=== PATIENT | male | born 1980 | race Caucasian/White ===

== ENCOUNTER 2023-10-20 19:45 | Inpatient (IN) | payer OTHER, SELFPAY ==
[2023-10-20] VITALS (9 sets, daily range): BP systolic 116–172; BP diastolic 58–100; BMI 39.2; BMI 38.1
--- NOTE | 2023-10-20 12:51 | ED.GENMED ---
History of Present Illness
General
Chief Complaint: Abdominal Pain
Source: patient
Exam Limitations: none
Time Seen by Provider: 10/20/23 12:10
Nursing documentation reviewed up to this point in time: agreed with
Travel History
Have you had any contact with someone who has COVID-19?: No
Do you have any symptoms of coronavirus? Fever > 100 degrees, chills, cough, shortness of breath, sore throat, loss of taste or smell, muscle aches, or headache?: No
History of Present Illness
History of Present Illness:
43-year-old male with previous history of liver laceration many years ago no chronic issues from this presented to the emergency department today with concerns of initially intermittent right upper quadrant abdominal pain now worsening and persist
comfort over the past 24 hours or so. Associated nausea no vomiting no appetite. No changes in bowel he claims that he has felt feverish but denies taking his temperature.
Past History
Past History
ED Past Medical History: Other (Chronic back pain); Negative Asthma, HTN, Hypercholesterolemia or NIDDM
ED Past Surgical History: Other (EXp lap due to lacerated liver as a child)
Social History
Tobacco: Non-smoker
Alcohol: None
Personal: Single
Living: with family
Review of Systems
Review of Systems
Allergies reviewed?: Yes
All Other Systems: ROS reviewed and negative except as documented in HPI and ROS
Phy Exam
Physical Exam
Physical Exam:
GENERAL: Alert , in no apparent distress
EYE: pupils equal and reactive
NECK: Supple, no significant adenopathy.
ENT: o/p clr, mmm.
CARDIAC: Regular rate and rhythm .
LUNGS: Clear breath sounds bilaterally, no acute respiratory distress, no wheezes/rales/rhonchi
ABDOMEN: Significant right upper quadrant tenderness to palpation remainder of the abdomen soft nontender
NEUROLOGICAL: Alert and oriented, no focal neuro deficits
SKIN: Warm and dry, skin intact.
MUSCULOSKELETAL: No edema, well perfused.
PSYCH: Normal and appropriate interaction.
Course
Orders/Labs/Results
Orders:
Orders
10/20/23 12:24
0.9% Sodium Chloride 1000 ml [Nss] 1,000 ml IV BOLUS
Ketorolac [Toradol] 15 mg IV NOW STA
US Abdomen Complete/Upper Urgent
Comment:
Reason For Exam: ruq pain
10/20/23 13:12
Complete Blood Count/With Diff Urgent
Comprehensive Metabolic Panel Urgent
Lipase Urgent
10/20/23 13:19
Urinalysis Reflex To Culture Urgent
Date Specimen was Collected: 10/20/23
Time Specimen was Collected: 13:17
Abnormal Lab Results
10/20/23
13:12
MCH 32.6 H pg
(27.0-31.0)
MPV 10.5 H fL
(7.4-10.4)
Absolute Neuts (auto) 8.6 H 10^3/uL
(1.4-6.5)
Absolute Lymphs (auto) 1.0 L 10^3/uL
(1.2-3.4)
Absolute Monos (auto) 0.7 H 10^3/uL
(0.1-0.6)
Neutrophils % 82.6 H %
(42.2-75.2)
Lymphocytes % 10.0 L %
(20.5-51.1)
BUN 5 L mg/dl
(9-20)
Creatinine 0.5 L mg/dL
(0.7-1.3)
Glucose 104 H mg/dl
(70-99)
Total Bilirubin 3.7 H mg/dl
(0.2-1.3)
AST 313 H U/L
(17-59)
ALT 188 H U/L
(0-50)
Total Protein 8.3 H g/dl
(6.3-8.2)
10/20/23 13:12
10/20/23 13:12
Vital Signs
Initial and Last Documented VS:
Initial Vital Signs
Temp Pulse Resp BP Pulse Ox
98.9 F 79 18 158/100 96
10/20/23 11:02 10/20/23 11:02 10/20/23 11:02 10/20/23 11:02 10/20/23 11:02
Last Documented Vital Signs
Temp Pulse Resp BP Pulse Ox
98.9 F 66 16 172/91 99
10/20/23 11:02 10/20/23 17:30 10/20/23 17:30 10/20/23 17:00 10/20/23 17:30
MDM/Problems Addressed
MDM/Problems Addressed:
43-year-old male presenting to the emergency department with concerns of right upper quadrant abdominal pain persisting for the past day or so has had previous symptoms intermittently in the past. Seem to be worse with fatty foods. Has had nausea
and vomiting claims that he has felt feverish but denies any objective fevers. Patient with significant discomfort to the right upper quadrant initial ultrasound showing gallstones without obvious cholecystitis urinalysis normal patient with
significant elevated bilirubin level 3.7 elevated AST and ALT concerning for potential choledocholithiasis. Plan for admission for MRCP. Patient with some ongoing abdominal pain throughout ER stay. Generally in no distress though.
*Critical Care Note
Total Time (30-74mins, 75-104mins- exclusive of procedures): Not Applicable
ED Attending Note
-
Portions of this chart may have been created with voice recognition software.� Occasional wrong word or��sound alike� substitutions may have occurred due to the inherent limitations of voice recognition software.
Discharge Plan
Departure
Patient Disposition: Admit
Date of Disposition: 10/20/23
Time of Disposition: 18:32
Admit to: Med/Surg
Admit to doctor: Gerardo
Presentation/result/management discussed w/ accepting MD/DO: Hospitalist
Patient with high blood pressure during this ER visit?: No
Condition: Good
Covid-19: Not Applicable
Discharge Problem:
Elevated bilirubin, Transaminitis, Abdominal pain, RUQ
Prescriptions:
No Action
No Current Medications
0
Referrals:
Federico Breaux MD [Family Provider] -
Interventions
Interventions:
*Risk Screen - Suicide Last Done: 10/20/23 11:26
*General Assessment Last Done: 10/20/23 11:02
*Neglect/Abuse Screening Last Done: 10/20/23 11:26
ED- Fall Risk Assessment Last Done: 10/20/23 11:26
*ED COVID-19 Vaccine History Last Done: 10/20/23 11:02
ZY-Aqkjrt-Uehuricmon Assessment Last Done: 10/20/23 11:26
[2023-10-20] MEDS: NSS 1000 IV (13:14)
[2023-10-20] MEDS: TORADOL 15 MG IV (13:15)
[2023-10-20 13:25] LABS: % Basophils 0.2 % (0-2); % Eosinophils 0.1 % (0-6); % Immature Granulocytes 0.4 % (0-0.5); % Monocytes 6.7 % (1.7-9.3); % Neutrophils 82.6 % (42.2-75.2); Absolute Monocytes 0.7 10^3/uL (0.1-0.6); Absolute Neutrophils 8.6 10^3/uL (1.4-6.5); Hematocrit 47.3 % (39.0-52.0); Hemoglobin 16.8 g/dL (13.0-18.0); Mean Corp Hgb Conc. 35.5 g/dL (33.0-37.0); Mean Corpuscular Hgb 32.6 pg (27.0-31.0); Mean Corpuscular Volume 91.8 fL (80.0-94.0); Mean Platelet Volume 10.5 fL (7.4-10.4); Nucleated Red Blood Cells % 0 % (-); Platelet Count 279 10^3/uL (130-400); Red Blood Cell Count 5.15 10^6/uL (4.70-6.10); Red Cell Dist. Width 12.4 % (11.5-14.5); White Blood Cell Count 10.4 10^3/uL (4.8-10.8)
[2023-10-20 13:37] LABS: ALT (SGPT) 188 U/L (0-50); AST (SGOT) 313 U/L (17-59); Albumin 4.9 g/dl (3.5-5.0); Alkaline Phosphatase 106 U/L (38-126); Blood Urea Nitrogen 5 mg/dl (9-20); Calcium 9.5 mg/dl (8.4-10.2); Carbon Dioxide 25 mmol/L (22-30); Chloride 102 mmol/L (98-107); Estimated Creatinine Clearance > 125 ml/min; Glucose 104 mg/dl (70-99); Lipase 125 U/L (23-300); Potassium 4.1 mmol/L (3.5-5.1); Sodium 138 mmol/L (135-145); Total Bilirubin 3.7 mg/dl (0.2-1.3); Total Protein 8.3 g/dl (6.3-8.2); eGFR > 60.00
[2023-10-20 13:43] LABS: Urine Albumin Negative (Neg - Trace); Urine Bilirubin Negative (Negative); Urine Character Clear (Clear); Urine Color Yellow; Urine Glucose Negative (Negative); Urine Ketone Negative (Negative); Urine Leukocyte Negative (Negative); Urine Nitrite Negative (Negative); Urine Occult Blood Negative (Negative); Urine Specific Gravity 1.005 (<1.030); Urine Urobilinogen Negative (Neg - 1+)
--- NOTE | 2023-10-20 19:37 | HPS.HSE ---
Addendum entered and electronically signed by Aman Pantoja DO 10/20/23 19:56:
Patient seen and examined independently. Agree with findings and plan as set forth by Augustina Glass PA-C.
Patient is a 43y M with PMH significant for obesity who presents to ED complaining of RUQ abdominal pain. Patient states that he has had similar symptoms intermittently for the past 2 years or so. He has adjusted his diet with some improvement
in frequency and severity of his symptoms. Patient states that he developed worsened pain about 24 hours ago that has not improved since. He reports sweats and shaking chills. He denies any N/V/D. No current medications.
Ass:
Symptomatic Cholelithiasis
+/- Choledocholithiasis
Obesity
Plan:
Admit for further evaluation and treatment.
NPO, IVFs, pain control and antiemetics if needed.
MRCP in the AM for further evaluation.
GI evaluation.
Will benefit from Surgery evaluation / eventual cholecystectomy.
Monitor for any fevers, chills, other signs / symptoms of cholecystitis or cholangitis.
Original Note:
Family Physician
-
Family Physician: Federico Breaux
Chief Complaint
-
Abdominal Pain
History of Present Illness
Pt is a 43yo M who is presenting to the ED c/o RUQ pain x 1 day. Pt states he developed right upper quadrant discomfort at around 4pm yesterday and states that he ate Ramen noodles for dinner shortly after which seems to have exacerbated the pain.
He states that he frequently experiences RUQ pain which first began 2 years ago. He states initially episodes occurred about 1-2 times a week but with dietary changes they now occur less frequently, about 1-2 times per month. He describes this as a
stabbing pain which radiates to the back and is usually sudden in onset, but states this episode began with a rapid progression of pain. He admits to chills, sweats, and loss of appetite. He denies vomiting, diarrhea, constipation.
Medical History
Past Medical History
Past Medical History: Reports None
Past Surgical History: Reports Other
Additional Past Surgical History:
Exploratory Laparotomy for Liver Laceration Repair
Social History
Tobacco: Non-smoker
Alcohol: None
Family History
Family History: Not pertinent
Allergies / Home Medications
Allergies reflects when Allergies were last updated in [facility].
Home Medications with original date entered in [facility]
Allergy/Medication List:
Allergies
Allergy/AdvReac Type Severity Reaction Status Date / Time
bee venom protein (honey bee) Allergy Intermediate Swelling Verified 10/20/23 11:04
Home Medications
No Meds [No Current Medications] 10/20/23
Review of Systems
-
A 12 point ROS was completed and negative except as noted: Yes
Constitutional: Reports Chills; Denies Fever
Respiratory: Denies Cough or Trouble Breathing
Cardiac: Denies Chest Pain or Palpitations
Abdomen/GI: Reports See HPI
Physical Exam
Vital Signs
Vital Signs
Temp Pulse Resp BP Pulse Ox
98.9 F 81 21 165/91 98
10/20/23 11:02 10/20/23 18:45 10/20/23 18:45 10/20/23 18:00 10/20/23 18:45
Physical Exam
General: Comfortable and Conversant
HEENT: Anicteric and Moist mucous membranes
Respiratory: Clear and Non Labored Respirations
Cardiac: S1/S2 and Regular Rhythm
GI: Soft and Tender (Right Upper Quadrant)
Musculoskeletal: No Clubbing and No Cyanosis
Skin: Warm and Dry
Neuro: Awake, Alert, Oriented and Nonfocal/grossly intact
Psych: Calm
Laboratory Results
-
10/20/23 13:12
10/20/23 13:12
Laboratory Results
Total Bilirubin 3.7 mg/dl (0.2-1.3) H 10/20/23 13:12
AST 313 U/L (17-59) H 10/20/23 13:12
ALT 188 U/L (0-50) H 10/20/23 13:12
Alkaline Phosphatase 106 U/L (38-126) 10/20/23 13:12
Lipase 125 U/L (23-300) 10/20/23 13:12
Data Reviewed
-
Lab Data: Labs Reviewed by me
Impression/Plan
-
Abdominal Pain with Abnormal LFT suspect Biliary Colic and Choledocholithiasis
-Consult GI
-Check Abd MRI/MRCP
-NPO with sips of clears
-Trend LFTs
-Reviewed with patient need for cholecystectomy in the future as outpatient
DVT proph: Lovenox
Code Status: Full Code
--- NOTE | 2023-10-20 20:30 | PTCARENOTE ---
pt arrived from ED to [address], walked on own into room. AAOx3, very pleasant, oriented to room. No needs at this time, VSS. plan of care explained and understood by patient. will cont to monitor.
[2023-10-21 06:49] LABS: Hematocrit 39.6 % (39.0-52.0); Hemoglobin 14.1 g/dL (13.0-18.0); Mean Corp Hgb Conc. 35.6 g/dL (33.0-37.0); Mean Corpuscular Hgb 33.3 pg (27.0-31.0); Mean Corpuscular Volume 93.4 fL (80.0-94.0); Mean Platelet Volume 10.8 fL (7.4-10.4); Platelet Count 200 10^3/uL (130-400); Red Blood Cell Count 4.24 10^6/uL (4.70-6.10); Red Cell Dist. Width 12.4 % (11.5-14.5); White Blood Cell Count 6.4 10^3/uL (4.8-10.8)
--- NOTE | 2023-10-21 06:59 | CON.GI ---
Addendum entered and electronically signed by Edwina Salazar DO 10/21/23 15:04:
The MRI read is back showing a distended gallbladder of 11.8 cm with innumerable small 5 mm gallstones layering in the lumen with a mild amount of pericholecystic inflammation, mild diffuse intrahepatic biliary ductal dilatation and CBD dilation of
6 to 7 mm in diameter with no convincing evidence for choledocholithiasis. Mild circumferential enhancement of the wall of the common bile duct in the pancreatic head. No pancreatic ductal dilatation but diffuse edema throughout the pancreas with
diffuse peripancreatic fluid and acute interstitial edematous pancreatitis. No fluid collection.
Based on imaging and clinically he does meet criteria for pancreatitis.
I restarted fluids which he did not have any and we will give him a 1 L bolus now. I will also consult surgery for eventual cholecystectomy considering this is more likely gallstone pancreatitis
Check LFTs, lipase, and CBC in the morning
Addendum entered and electronically signed by Edwina Salazar DO 10/21/23 14:19:
Would avoid Tylenol in the setting of hepatocellular injury, use tramadol
Addendum entered and electronically signed by Edwina Salazar DO 10/21/23 14:16:
Patient seen and examined independently of SARA. I agree with her note with my additions below
Keven is a 43-year-old male who is obese and has had multiple bouts of pneumonia per the chart who had an intentional 90 pound weight loss a few years ago that has since been stable who comes in with what sounds like biliary colic. Over the past
year he has had intermittent episodes of epigastric and right upper quadrant pain that lasts hours after a meal that can make him nauseated. Generally it goes away with time but this 1 persisted and was different in terms of severity. He said it
was severe before coming in then improved a little then came right back and since has been at a low level but he is tender with palpation. He had an MRI (on my read )showing a dilated gallbladder multiple gallstones, no significant bile duct
dilation. The neck of the gallbladder appears abnormal. Still awaiting the read from radiology.
On labs he had no leukocytosis, total bilirubin 3.8, AST 187, ALT 169 and alkaline phosphatase 89. His lipase was normal. On exam he is soft but tender in the epigastric and right upper quadrant. States even with taking a pill or sipping water it
hurts. Currently no nausea or vomiting. He is afebrile
Ultrasound done yesterday showed multiple small gallstones but no evidence of acute cholecystitis. Normal-appearing pancreas
Overall, concern for biliary colic but his liver enzymes are concerning for more of an obstructive process. I do not see an obstruction on the MRI or ultrasound but am waiting for the official radiology read
Pending results will likely need general surgery consult
Patient needs IV fluids, I have ordered them and okay for sips of clears
Original Note:
Consultation
-
Date/Time Consultation Requested: 10/20/232029
Date/Time Consultation Performed: 10/21/23839
Requesting Provider: Augustina Glass PA-C
Performing Provider: SARA Alvarado, Edwina Salazar DO
Reason for Consultation: increased LFT's
Medical History
Chief Complaint / HPI
Chief Complaint: abdominal pain
History of Present Illness:
Pt is a 43yo with hx prior hx several bouts of PNA, exp lap for liver laceration as child with onset of RUQ pain. In reviewing with patient has had intermittent pain for last 2 years. He recalls 90 lb wt loss prior to onset a few years ago than
weight leveled off. Pain would appear about every other month but resolve. This episode pain continued and presented for evaluation. On admission noted with bilirubin 3.7, AST 313, ALT 188, alk phos 106, and lipase 125. US notable for multiple
small gallstones in gallbladder but no ductal dilation, fatty liver and renal cysts. MRI pending to be completed.
Pt admits to nausea without vomiting. He has had some change in stool color and darker urine with dehydration. He admits to RUQ pain with some improvement since admission but residual soreness. He otherwise denies diarrhea, constipation, blood
or black in stools. No hx EGD or colonoscopy in past. + occasional NSAID use.
Past Medical History
Past Medical History: Other (chronic back pain, prior PNA, obesity)
Past Surgical History: Other (exp lap due to liver laceration as child )
Social History
Tobacco: Non-Smoker
Alcohol: None
Drug: None
Personal: Single
Living: With Family
Employment: Not Employed
Family History
Family History: Other (grandfather with gallbladder problems)
Allergies / Home Medications
Allergy/AdvReac Type Severity Reaction Status Date / Time
bee venom protein (honey bee) Allergy Swelling Verified 10/20/23 20:41
Medication Instructions Recorded
No Meds [No Current Medications] 10/20/23
Review of Systems
-
History Source: Patient
Constitutional: Reports Weight Loss (several years ago now slow increase )
EENT: Reports No Symptoms
Respiratory: Reports No Symptoms
Abdomen/GI: Reports Abdominal Pain, Nausea and Other (change in stool color )
: Reports Dark Urine (with dehydration)
Musculoskeletal: Reports No Symptoms
Skin: Reports No Symptoms
Neurological: Reports No Symptoms
Endocrine: Reports No Symptoms
Hematologic/Lymphatic: Reports No Symptoms
Vital Signs
Temp Pulse Resp BP Pulse Ox
98.8 F 55 18 116/58 97
10/20/23 23:17 10/20/23 23:17 10/20/23 23:17 10/20/23 23:17 10/20/23 23:17
Physical Exam
Exam
General: Well Developed, Well Nourished and No Apparent Distress
HEENT: Normocephalic and Anicteric
Respiratory: Clear
Cardiac: Regular Rhythm
GI: Soft, Non Distended and Tender (RUQ mild)
Musculoskeletal: No Clubbing and No Cyanosis
Skin: Warm and Dry
Neuro: Awake, Alert and AO x 3
Psych: Calm
Results
WBC 10.4 10^3/uL (4.8-10.8) 10/20/23 13:12
Hgb 16.8 g/dL (13.0-18.0) 10/20/23 13:12
Hct 47.3 % (39.0-52.0) 10/20/23 13:12
MCV 91.8 fL (80.0-94.0) 10/20/23 13:12
Plt Count 279 10^3/uL (130-400) 10/20/23 13:12
Absolute Neuts (auto) 8.6 10^3/uL (1.4-6.5) H 10/20/23 13:12
Sodium 138 mmol/L (135-145) 10/20/23 13:12
Potassium 4.1 mmol/L (3.5-5.1) 10/20/23 13:12
Chloride 102 mmol/L (98-107) 10/20/23 13:12
Carbon Dioxide 25 mmol/L (22-30) 10/20/23 13:12
BUN 5 mg/dl (9-20) L 10/20/23 13:12
Creatinine 0.5 mg/dL (0.7-1.3) L 10/20/23 13:12
Calcium 9.5 mg/dl (8.4-10.2) 10/20/23 13:12
Total Bilirubin 3.7 mg/dl (0.2-1.3) H 10/20/23 13:12
AST 313 U/L (17-59) H 10/20/23 13:12
ALT 188 U/L (0-50) H 10/20/23 13:12
Alkaline Phosphatase 106 U/L (38-126) 10/20/23 13:12
Lipase 125 U/L (23-300) 10/20/23 13:12
Diagnostic Image Results:
10/20/23 US notable for multiple small gallstones in gallbladder but no ductal dilation, fatty liver and renal cysts
MRI/MRCP pending
Prior GI Procedures:
EGD: none
Colonoscopy: none
Assessment / Plan
-
Pt is a 43yo with hx prior hx several bouts of PNA, exp lap for liver laceration as child with onset of RUQ pain. In reviewing with patient has had intermittent pain for last 2 years. He recalls 90 lb wt loss prior to onset a few years ago than
weight leveled off. Pain would appear about every other month but resolve. This episode pain continued and presented for evaluation. On admission noted with bilirubin 3.7, AST 313, ALT 188, alk phos 106, and lipase 125. US notable for multiple
small gallstones in gallbladder but no ductal dilation, fatty liver and renal cysts. MRI pending to be completed.
-RUQ pain with intermittent bouts last 2 years
-increased LFT's
-cholelithiasis
-hx liver laceration as child with exp lap
-prior PNA
-obesity
-fatty liver
-occasional NSAID use
PLAN:
etiology of symptoms related to choledocholithiasis, biliary collic vs other
some improvement in pain today
MRI pending to be completed will add MRCP to rule out choledocholithiasis
if MRI + CBD stone will need ERCP
trend LFT's and lipase
NPO pending study
pain contol
will need to consider eventual amanda IP vs OP pending testing
OP eval for fatty liver, will need colonoscopy for screening after February at age 44
all questions answered
-
-
Thank you for consultation and allowing me to participate in the patient's care. Please call the communication equipment repairer GI physician during the after hours with any questions or concerns.
[2023-10-21 07:16] LABS: ALT (SGPT) 169 U/L (0-50); AST (SGOT) 187 U/L (17-59); Albumin 3.6 g/dl (3.5-5.0); Alkaline Phosphatase 89 U/L (38-126); Blood Urea Nitrogen 6 mg/dl (9-20); Calcium 8.5 mg/dl (8.4-10.2); Carbon Dioxide 24 mmol/L (22-30); Chloride 108 mmol/L (98-107); Estimated Creatinine Clearance > 125 ml/min; Glucose 81 mg/dl (70-99); Potassium 3.6 mmol/L (3.5-5.1); Sodium 138 mmol/L (135-145); Total Bilirubin 3.8 mg/dl (0.2-1.3); Total Protein 6.2 g/dl (6.3-8.2); eGFR > 60.00
[2023-10-21 07:20] VITALS: BP 149/81
[2023-10-21] MEDS: PROTONIX IV 40 MG IV (08:30)
[2023-10-21] MEDS: NSS (PRESERVATIVE FREE) 10 ML IV (08:30)
[2023-10-21] MEDS: TYLENOL 650 MG PO (08:41)
--- NOTE | 2023-10-21 11:09 | CM ---
Reviewed the chart notes and spoke with the patient at the bedside. The patient resides with his mother in a two story home with no steps to enter. The patient reports no DME/VN/SNF in the past. The patient confirmed his pharmacy of choice is the
[facility] [address] [place]. The patient anticipates no needs at discharge. CM continues to be available to patient/family and is monitoring medical plan for needs at discharge.
Plan: Discharge to home when medically stable. Patient is requesting paper prescriptions at discharge.
--- NOTE | 2023-10-21 11:27 | W.PN.HOSP.TC ---
Today's Communication/Plan
-
Follow-up MRI MRCP
Check A1c
Assessment / Plan
Assessment / Plan
Abdominal Pain with Abnormal LFT suspect Biliary Colic vs Choledocholithiasis
-GI evaluated and agreed with plan of MRI MRCP, pending today
-LFT marginally elevated
-NPO with sips of clears
-Patient remains afebrile, no indication for antibiotics.
-Further treatment plan based on MRI findings
Pre-diabetic
-Reported previous history in the past, have not seen any PCP in many years
-Recheck A1c
Obesity
-Excessive calorie intake, patient have lost weight in last few years
DVT proph: Lovenox
Code Status: Full Code
Discussed care plan with gastroenterology.
Anticipated Discharge: 24 - 48 hours
Subjective/Interval History
-
Date of Service: October 21, 2023
no abd pain/nausea/vomiting reported during round today
per patient comes in episode with significant associated
Objective Data
-
Labs:
Laboratory Results
10/21/23
06:26
WBC 6.4
Hgb 14.1
Hct 39.6
Plt Count 200 D
Sodium 138
Potassium 3.6
Chloride 108 H
Carbon Dioxide 24
BUN 6 L
Creatinine 0.5 L
Glucose 81
Calcium 8.5
Total Bilirubin 3.8 H
AST 187 H
ALT 169 H
Alkaline Phosphatase 89
Vital Signs:
Vital Signs
Temp Pulse Resp BP Pulse Ox
98.4 F 67 17 149/81 97
10/21/23 07:20 10/21/23 07:20 10/21/23 07:20 10/21/23 07:20 10/21/23 07:20
Review of Systems
-
Respiratory: Reports No Symptoms
Cardiac: Reports No Symptoms
Abdomen/GI: Reports No Symptoms
Physical Exam
-
General: No Apparent Distress and Comfortable
HEENT: Negative Oxygen
Respiratory: Clear to Auscultation
Cardiac: Regular Rhythm and S1/S2; Negative Murmur or Rub
GI: Soft, Nontender and Nondistended
Musculoskeletal: No Edema
Neuro: Awake, Alert, Oriented, No Motor Deficits and Nonfocal/Grossly Intact
Psych: Calm
[2023-10-21 13:55] LABS: Glycohemoglobin (HgbA1c) 5.2 % (4.0-5.6)
[2023-10-21 15:40] VITALS: BP 172/93
[2023-10-21] MEDS: LR 1000 IV ×3 (15:46→23:52)
[2023-10-21 16:17] VITALS: BP 154/89
[2023-10-21] MEDS: LOVENOX 40 MG SC (17:27)
[2023-10-21 23:25] VITALS: BP 135/73
[2023-10-22 05:11] LABS: Hematocrit 38.7 % (39.0-52.0); Hemoglobin 13.8 g/dL (13.0-18.0); Mean Corp Hgb Conc. 35.7 g/dL (33.0-37.0); Mean Corpuscular Hgb 33.2 pg (27.0-31.0); Mean Platelet Volume 10.6 fL (7.4-10.4); Platelet Count 189 10^3/uL (130-400); Red Blood Cell Count 4.16 10^6/uL (4.70-6.10); Red Cell Dist. Width 12.2 % (11.5-14.5); White Blood Cell Count 7.8 10^3/uL (4.8-10.8)
[2023-10-22 05:46] LABS: ALT (SGPT) 149 U/L (0-50); AST (SGOT) 127 U/L (17-59); Albumin 3.5 g/dl (3.5-5.0); Alkaline Phosphatase 85 U/L (38-126); Blood Urea Nitrogen 7 mg/dl (9-20); Calcium 8.6 mg/dl (8.4-10.2); Carbon Dioxide 26 mmol/L (22-30); Chloride 107 mmol/L (98-107); Direct Bilirubin 1.3 mg/dl (0.0-0.4); Estimated Creatinine Clearance > 125 ml/min; Glucose 73 mg/dl (70-99); HDL Cholesterol 35 mg/dl; LDL Cholesterol, Calculated 98 mg/dl; Lipase 1519 U/L (23-300); Potassium 3.7 mmol/L (3.5-5.1); Sodium 137 mmol/L (135-145); Total Bilirubin 2.4 mg/dl (0.2-1.3); Total Cholesterol 156 mg/dl (50-199); Total Protein 6.1 g/dl (6.3-8.2); Triglyceride 118 mg/dl (10-149); Very Low Density Lipoprotein 23 mg/dl (0-30); eGFR > 60.00
[2023-10-22] MEDS: LR 1000 IV ×3 (06:15→18:20)
[2023-10-22 07:30] VITALS: BP 141/83
[2023-10-22] MEDS: PROTONIX IV 40 MG IV (07:48)
[2023-10-22] MEDS: NSS (PRESERVATIVE FREE) 10 ML IV (07:48)
--- NOTE | 2023-10-22 09:30 | CON.GS ---
Consultation
-
Date/Time Consultation Requested: 1500
Requesting Provider: Marie
Reason for Consultation: gallstone pancreatitis, for eventual amanda
Medical History
-
Chief Complaint: abdominal pain
History of Present Illness:
This is a 43 yo male with a history of an ex lap for a traumatic liver laceration as a child and rapid weight loss of 90lbs about 2 years ago after being treated for pna who presents with an approximately 2 year history of intermittent episodes of
epigastric and RUQ pain after large meals. He notes about 14 of these episodes or more. He has noted acholic stools in the past with a previous episode but not with this episode. He tried home remedies of apple cider vinegar and eventually coca cola
in past which he reports helped with prior symptoms as well as eating only light meals. He presented this admission through the ED, as he was having a similar episode as previous only this time his pain was not resolving and he began having pain in
the LUQ as well. He reports nausea but denies vomiting with this episode although he has had this in the past. He denies acholic stools currently. He notes his stools have been different and looser but denies diarrhea. Currently, he is having
residual RUQ pain and tenderness with resolution of LUQ pain/tenderness. He denies active nausea.
Past Medical History
Past Medical History: Other (Obesity, chronic back pain)
Past Surgical History: Other (Ex lap with repair of liver laceration as a child)
Social History
Tobacco: Non-Smoker
Alcohol: None
Employment: Not Employed
Family History
Family History: Reviewed & Not Pertinent
Allergies / Home Medications
Allergy/AdvReac Type Severity Reaction Status Date / Time
bee venom protein (honey bee) Allergy Swelling Verified 10/20/23 20:41
Medication Instructions Recorded Confirmed Type
No Meds [No Current Medications] 10/20/23 10/20/23 History
Review of Systems
-
History Source: Patient
All other systems: Negative unless noted
A 10 point review of systems was completed, and was negative except as per HPI.
Physical Exam
Vital Signs
Temp Pulse Resp BP Pulse Ox
98.4 F 57 16 141/83 98
10/22/23 07:30 10/22/23 07:30 10/22/23 07:30 10/22/23 07:30 10/22/23 07:30
10/21/23 10/22/23 10/23/23
06:59 06:59 06:59
Actual Weight 120.4 kg
Body Mass Index (BMI) 38.1
Lab Results
10/22/23 04:49
10/22/23 04:49
WBC 7.8 10^3/uL (4.8-10.8) 10/22/23 04:49
Hgb 13.8 g/dL (13.0-18.0) 10/22/23 04:49
Hct 38.7 % (39.0-52.0) L 10/22/23 04:49
Plt Count 189 10^3/uL (130-400) 10/22/23 04:49
Abs Immat Gran (auto) 0.0 10^3/uL (0-0.05) 10/20/23 13:12
Neutrophils % 82.6 % (42.2-75.2) H 10/20/23 13:12
Physical Exam
General: Well Developed and No Apparent Distress
HEENT: Normocephalic
Respiratory: Non Labored Respirations
GI: Soft, Non Distended, Tender (RUQ) and Obese
Skin: Warm and Dry
Neuro: Awake, Alert and AO x 3
Psych: Calm
Data Reviewed
-
Ultrasound: Image Personally Visualized and interpreted, Report Reviewed by me, Discussed with Physician and Discussed with Patient
MRI: Image Personally Visualized and interpreted, Report Reviewed by me, Discussed with Physician and Discussed with Patient
Labs: Labs Reviewed by me, Discussed with Physician and Discussed with Patient
Old Records: Reviewed
Assessment / Plan
-
43 yo male with h/o ex lap for liver laceration as a child and episodes of biliary colic x 2 years presenting with persistent pain. LFT's elevated on presentation and now trending down. No leukocytosis. Cholelithiasis on initial US. MRCP without
choledocholithiasis but with extensive cholelithiasis and some mild pericholecystic edema. Pancreatitis on imaging as well. Initial lipase was normal, repeated level today was 1500. Pain nearly resolved to epigastric area and LUQ but tender to the
RUQ with palpation. Suspect gallstone mediated pancreatitis with possible passage of stone. afebrile with stable vital signs.
Recommend eventual cholecystectomy this admission once episode of pancreatitis improved. Patient agreeable with this plan. Will start empiric antibiotics preoperatively given residual right sided pain/pericholecystic inflammation.
Follow labs
Diet as per GI, but will make NPO after MN in case OR is feasible tomorrow
[2023-10-22] MEDS: ZOSYN 50 IV ×3 (10:38→21:27)
--- NOTE | 2023-10-22 10:48 | CM ---
CM consult received regarding patient's concern for hospital bill since he has no insurance. Left message for [facility] for assistance. Provided the patient with the [facility] information regarding insurance. CM continues to be available to
patient/family and is monitoring medical plan for needs at discharge.
Plan: Discharge to home with no needs being identified at this time.
--- NOTE | 2023-10-22 12:40 | W.PN.HOSP.TC ---
Today's Communication/Plan
-
maintain NPO/IVF
eventual cholecystectomy
Assessment / Plan
Assessment / Plan
MRI/MRCP
1. � ACUTE INTERSTITIAL EDEMATOUS PANCREATITIS.
2. � Mild biliary dilatation without evidence for choledocholithiasis.
3. � EXTENSIVE CHOLELITHIASIS and severe gallbladder distention.
4. � Severe diffuse hepatic steatosis.
5. � Mild sheba hepatis and portacaval lymphadenopathy.
6. � Mild splenomegaly.
Liver/GB US
Multiple small gallstones. No secondary findings to suggest acute cholecystitis. Clinical and laboratory correlation recommended. Hepatic fatty infiltration Simple bilateral renal cysts

Gallstone pancreatitis
-MRI abd report as above.
-LFT marginally elevated
-NPO with sips of clears maintain on IV fluid.
-Lipase elevated to ~ 1100 today
-General surgery involved in care, plan for elective cholecystectomy this admit
Pre-diabetic - ruled out
-Reported previous history in the past, have not seen any PCP in many years
-A1c of 5.2
Obesity
-Excessive calorie intake, patient have lost weight in last few years
DVT proph: Lovenox
Code Status: Full Code
Discussed care plan with gastroenterology.
Anticipated Discharge: 24 - 48 hours
Subjective/Interval History
-
Date of Service: October 22, 2023
no issues overnight
Some minimal abdominal discomfort. no nausea/vomting
Objective Data
-
Labs:
Laboratory Results
10/22/23
04:49
WBC 7.8
Hgb 13.8
Hct 38.7 L
Plt Count 189
Sodium 137
Potassium 3.7
Chloride 107
Carbon Dioxide 26
BUN 7 L
Creatinine 0.5 L
Glucose 73
Calcium 8.6
Total Bilirubin 2.4 H
AST 127 H
ALT 149 H
Alkaline Phosphatase 85
Vital Signs:
Vital Signs
Temp Pulse Resp BP Pulse Ox
98.4 F 57 16 141/83 98
10/22/23 07:30 10/22/23 07:30 10/22/23 07:30 10/22/23 07:30 10/22/23 07:30
I&O
10/21/23 10/22/23 10/23/23
06:59 06:59 06:59
Intake Total 3910 / 3910
Output Total 700 / 700
Balance 3210 / 3210
Review of Systems
-
Respiratory: Reports No Symptoms
Cardiac: Reports No Symptoms
Abdomen/GI: Reports Abdominal Pain (minimal discomfort); Denies Nausea or Vomiting
Physical Exam
-
General: No Apparent Distress and Comfortable
HEENT: Negative Oxygen
Neuro: Awake, Alert, Oriented, No Motor Deficits and Nonfocal/Grossly Intact
Psych: Calm
--- NOTE | 2023-10-22 13:25 | VATNOTE ---
Left arm remains swollen from reported previous IV infiltrate. Patient states swelling is improved, and offers no complaints related to infiltrate.
[2023-10-22 15:25] VITALS: BP 181/94
[2023-10-22 15:49] VITALS: BP 160/82
[2023-10-22] MEDS: LOVENOX 40 MG SC (17:22)
[2023-10-22 23:07] VITALS: BP 147/73
[2023-10-23] VITALS (10 sets, daily range): BP systolic 137–159; BP diastolic 73–98
[2023-10-23] MEDS: LR 1000 IV ×3 (01:40→19:39)
[2023-10-23] MEDS: ZOSYN 50 IV ×3 (03:05→21:24)
[2023-10-23 05:13] LABS: Hemoglobin 14.1 g/dL (13.0-18.0); Mean Corp Hgb Conc. 36.2 g/dL (33.0-37.0); Mean Corpuscular Hgb 33.4 pg (27.0-31.0); Mean Corpuscular Volume 92.4 fL (80.0-94.0); Mean Platelet Volume 10.8 fL (7.4-10.4); Platelet Count 209 10^3/uL (130-400); Red Blood Cell Count 4.22 10^6/uL (4.70-6.10); Red Cell Dist. Width 12.3 % (11.5-14.5); White Blood Cell Count 8.6 10^3/uL (4.8-10.8)
[2023-10-23 05:24] LABS: ALT (SGPT) 118 U/L (0-50); AST (SGOT) 79 U/L (17-59); Albumin 3.7 g/dl (3.5-5.0); Alkaline Phosphatase 90 U/L (38-126); Blood Urea Nitrogen 6 mg/dl (9-20); Calcium 8.7 mg/dl (8.4-10.2); Carbon Dioxide 26 mmol/L (22-30); Chloride 106 mmol/L (98-107); Estimated Creatinine Clearance > 125 ml/min; Glucose 72 mg/dl (70-99); Lipase 470 U/L (23-300); Potassium 3.7 mmol/L (3.5-5.1); Sodium 137 mmol/L (135-145); Total Bilirubin 2.2 mg/dl (0.2-1.3); Total Protein 6.2 g/dl (6.3-8.2); eGFR > 60.00
[2023-10-23] MEDS: PROTONIX IV 40 MG IV (07:21)
[2023-10-23] MEDS: NSS (PRESERVATIVE FREE) 10 ML IV (07:21)
--- NOTE | 2023-10-23 08:24 | W.PN.GS2 ---
Today's Communication / Plan
-
OR today
Assessment / Plan
-
This is a 43-year-old male with history of obesity who presents with 2-day history of worsening postprandial, right upper quadrant pain in the setting of the years of biliary colic found to have a distended gallbladder as well as pancreatitis on
MRI. His abdominal pain now has resolved, he would like to proceed with cholecystectomy.
Will plan for a laparoscopic cholecystectomy and cholangiogram.
N.p.o., IV fluids, IV antibiotics.
A potential discharge home later today pending operative findings.
Risks/Benefits/Alternatives, expected postoperative course and possible complications (bleeding, infection, injury to surrounding structures, acute/chronic pain) discussed at length. Patient wishes to proceed with surgery. All questions answered.
Consent obtained.
I spent roughly 25 minutes in total for the care of this patient today including direct patient care and counseling, reviewing labs, imaging, coordination of care, as well as documentation.
Time Spent
Total Time Spent with Patient (in minutes): 50
Subjective Data
-
Date of Service: October 23, 2023
Interval Events:
No acute events overnight. Slept well. Pain resolved. Denies Nausea/Vomiting, +bowel function.
Objective Data
-
Intake and Output
10/22/23 10/23/23 10/24/23
06:59 06:59 06:59
Intake Total 3910 / 3910 3700 / 3700
Output Total 700 / 700 2400 / 2400
Balance 3210 / 3210 1300 / 1300
Intake:
Oral fluids 960 / 960
IV fluids (Total) 2950 / 2950 3550 / 3550
IV piggybacks 150 / 150
Output:
Urine, Voided 700 / 700 2400 / 2400
Other:
Number of approximated MODERATE 1 3
amounts of urine
Number of approximated LARGE 3
amounts of urine
Vital Signs
Temp Pulse Resp BP Pulse Ox
98.4 F 50 16 147/73 97
10/22/23 23:07 10/22/23 23:07 10/22/23 23:07 10/22/23 23:07 10/22/23 23:07
Lab Results
10/23/23 04:15
10/23/23 04:15
Calcium 8.7 mg/dl (8.4-10.2) 10/23/23 04:15
Total Bilirubin 2.2 mg/dl (0.2-1.3) H 10/23/23 04:15
Direct Bilirubin 1.3 mg/dl (0.0-0.4) H 10/22/23 04:49
AST 79 U/L (17-59) H 10/23/23 04:15
ALT 118 U/L (0-50) H 10/23/23 04:15
Alkaline Phosphatase 90 U/L (38-126) 10/23/23 04:15
Total Protein 6.2 g/dl (6.3-8.2) L 10/23/23 04:15
Albumin 3.7 g/dl (3.5-5.0) 10/23/23 04:15
Physical Exam
-
GENERAL/NEURO: Awake, Alert, no distress
CHEST: Unlabored breathing on RA
ABDOMEN: Soft, mild tenderness to palpation in the right upper quadrant. Non-Distended, obese
--- NOTE | 2023-10-23 08:27 | W.SUR.PREOP ---
Pre-Operative Surgical Note
-
I have examined this patient prior to the performance of the scheduled procedure.
The patient's condition is unchanged from the time of the current History and
Physical and the patient is able to undergo the scheduled procedure.
[2023-10-23] MEDS: LR IV (08:43)
--- NOTE | 2023-10-23 11:32 | W.IMMPOSTOP ---
Surgical Immed Post Op Note
-
Primary Surgeon: Armani Montez MD
Assisting Surgeon: None
Pre-op Diagnosis: Acute cholecystitis
Post-op Diagnosis: Acute on chronic cholecystitis
Procedure Performed:
1. Laparoscopic lysis of adhesions
2. Laparoscopic cholecystectomy with cholangiogram
Anesthesia Type: General
Specimen / Cultures: Gallbladder and contents
Estimated Blood Loss: 11 cc
Complications: None
Operative Findings: Dense adhesions to the anterior abdominal. Thick adhesions to the gallbladder wall. Spillage of bile and roughly 100 cholesterol gallstones. All identified stones removed by the end of the case. Intraoperative cholangiogram
performed showed no filling defects after milking back 1 stone from the cystic duct. Duct ligated with two 5 mm titanium clips followed by a 0 PDS Endoloop.
POST OP PLAN:
Imaging: None
Labs: Routine AM
Diet: Advance to Regular as tolerated
Analgesia: Tylenol 650mg q6 Alejo, Valentina 5mg q6 PRN, Dilaudid 0.5mg q2h PRN
Neuro/vascular checks: q4h
AC/AP: Hold Therapeutic AC, Ok for DVT PPx
Activity: Ad Keyanna
Wound/Incisions/Drains: Routine
Abx: Can continue while inpatient
Dispo: RNF, anticipate discharge home later today versus tomorrow.
--- NOTE | 2023-10-23 11:37 | OR.RPT ---
Operative Report
Operative Report
Patient Name: Keven Rosales
: 1980
Date of Operation: 10/23/2023
Preoperative Diagnosis: Acute cholecystitis
Postoperative Diagnosis: Acute on chronic cholecystitis
Procedure(s):
Laparoscopic lysis of adhesions
Laparoscopic Cholecystectomy with Cholangiogram
Surgeon(s):
Dr. Montez
Dry Lumber Grader(s):
ARNOLD Fall
Anesthesia: General
Estimated Blood Loss: 11 cc
Urine Output: None
Drains/Lines/Implants: None
Specimens:
1. Gallbladder and contents
HPI/Surgical Indications:
This is a 43-year-old male with a history of a prior midline laparotomy for traumatic liver laceration when he was a youth, obesity and longstanding biliary colic who presents with 2 days of abdominal pain. Exam, labs and imaging are consistent with
acute cholecystitis as well as acute pancreatitis. After resolution of his pancreatitis, risks/Benefits/Alternatives were discussed at length, and the patient agreed to proceed with surgery.
Operative Findings:
Dense adhesions to the anterior abdominal wall. Thick adhesions to the gallbladder wall as well. Spillage of bile and roughly 100 cholesterol gallstones. All identified stones removed by the end of the case. Top-down cholecystectomy performed.
Intraoperative cholangiogram performed showed no filling defects after milking back 1 stone from the cystic duct. Duct ligated with two 5 mm titanium clips followed by a 0 PDS Endoloop.
Procedure Description:
The patient was brought to the Operating Room and placed in the supine position with one arm tucked. Following uneventful induction of general endotracheal anesthesia, an orogastric tube was placed. The abdomen was prepped and draped in the usual
sterile fashion. A timeout was performed confirming the procedure, consent, and that IV antibiotics were infused and sequential compression devices were confirmed to be on. The abdomen was entered using a left subcostal Veress technique which
required a single pass followed by a right upper quadrant 11 mm Optiview trocar. Pneumoperitoneum to 15 mmHg pressure was obtained without difficulty and we confirmed that no injury had occurred during our entry. There was a dense wall of adhesions
particularly along the midline that we had to lyse to view the left upper quadrant where we were able to visualize our Veress needle and confirmed no injury had occurred during its passage. We spent roughly 45 minutes lysing adhesions before
finally being able to identify the gallbladder which was also matted with adhesions from the omentum and surrounding fatty tissue. The adhesions surrounding the gallbladder were also taken down which took an additional 20 minutes. The patient was
positioned in reverse Trendelenberg and rotated with the right side up slightly. Two, and a 12 mm port in the epigastrium 5mm trocars were then placed along the right subcostal margin. A locking grasping forceps was placed on the fundus of the
gallbladder where it was then retracted cephalad and to the right. Using appropriate grasping instruments, the peritoneum overlying the triangle of Calot was incised and extended superiorly on both the anterior and posterior gallbladder rashid. The
infundibulum appeared to be fairly redundant and was fairly socked in due to chronic inflammation. A 4 x 4 Ray-Gail was placed into the gallbladder fossa. During the dissection in this area a rent was made in the gallbladder with spillage of bile
and several cholesterol gallstones. We did try to close the rent with 5 mm titanium endoclips however this was ultimately unsuccessful. We then converted to a top-down approach and gotten to a nice plane between the posterior gallbladder wall and
the liver. Several branches off of the cystic artery were identified and clipped as we tunneled down to the cystic duct. The cystic duct/gallbladder junction in turn was identified, dissected circumferentially and a clip was placed. A ductotomy was
made and a cholangiocatheter on an Stone clamp was inserted into the cystic duct. A C-arm was draped and brought into the field. An intra-operative cholangiogram was performed. Our first run unfortunately leaked likely due to high back pressure the
cystic duct milked retrograde and 1 small cholesterol gallstone was milked out. A second cholangiogram was performed and was noted to have:
No filling defects in the biliary tree
No significant biliary dilation
Brisk flow of contrast into the duodenum
Normal biliary anatomy, with a long cystic duct
The catheter was then removed and the cystic duct was controlled with two clips, followed by a 0 PDS Endoloop. The gallbladder bed was inspected and excellent hemostasis was obtained. The gallbladder was extracted through the 12 mm trocar site
using an endocatch bag along with many of the gallstones. The remainder of the gallstones were then plucked out using a laparoscopic scooping device until there was no more visible stones identified. The right upper quadrant of the abdomen was
again irrigated and excellent hemostasis was assured. We once again confirmed that there was no gallstones left behind. The 12 mm trocar site was closed using a [id number]-spdye 0 PDS suture using a Blake Chisholm. All remaining trocars were then
removed and the pneumoperitoneum was evacuated. All trocar sites were closed at the skin level using 4-0 Monocryl followed by Dermabond. Overall, the patient tolerated the procedure well and was taken to the Recovery Room postoperatively in
stable condition.
I was the attending physician and performed the procedure with assistance from the STORAGE SOLUTIONS ARCHITECT above. I was present for all portions of the case
Armani Montez MD
[2023-10-23] MEDS: DILAUDID 0.25 MG IV ×2 (11:59→12:17)
--- NOTE | 2023-10-23 12:39 | PTCARENOTE ---
Patient to OR at 0831 for procedure; Patient received back from PACU in bed at 1235; Surgical site assessed with NAIL EXPERT; IVF infusing; Call toribio within reach; Bed in lowest position, wheels locked
[2023-10-23] MEDS: ZOSYN IV (12:46)
--- NOTE | 2023-10-23 14:33 | W.PN.GI.CBS2 ---
Today's Communication / Plan
-
Incentive spirometry, IV fluids, pain control
Assessment / Plan
-
Pt is a 43yo with hx prior hx several bouts of PNA, exp lap for liver laceration as child with onset of RUQ pain. In reviewing with patient has had intermittent pain for last 2 years. He recalls 90 lb wt loss prior to onset a few years ago than
weight leveled off. Pain would appear about every other month but resolve. This episode pain continued and presented for evaluation. On admission noted with bilirubin 3.7, AST 313, ALT 188, alk phos 106, and lipase 125. US notable for multiple
small gallstones in gallbladder but no ductal dilation, fatty liver and renal cysts. MRI pending to be completed.
-RUQ pain with intermittent bouts last 2 years
-increased LFT's
-cholelithiasis
-hx liver laceration as child with exp lap
-prior PNA
-obesity
-fatty liver
-occasional NSAID use
pain contol
OP eval for fatty liver, will need colonoscopy for screening after February at age 44
# biliary colic - gallstone pancreatitis - POD 0 for amanda with dense adhesions and spillage of bile and multiple stones. Intraoperative cholangiogram showed no filling defects. 1 stone was milked back from the cystic duct.
LFTs are improving
IV fluids advance slowly on diet
Will check on him tomorrow. Does not appear ready for discharge. Added incentive spirometry
Total Time Spent with Patient (in minutes): 20
Subjective
Subjective
Date of Service: October 23, 2023
patient in pain post op
Objective
Data Reviewed
Laboratory Data:
Laboratory Results
10/23/23 04:15
10/23/23 04:15
Laboratory Results
Total Bilirubin 2.2 mg/dl (0.2-1.3) H 10/23/23 04:15
AST 79 U/L (17-59) H 10/23/23 04:15
ALT 118 U/L (0-50) H 10/23/23 04:15
Alkaline Phosphatase 90 U/L (38-126) 10/23/23 04:15
Lipase 470 U/L (23-300) H 10/23/23 04:15
Vital Signs and I&O:
Vital Signs
Temp Pulse Resp BP Pulse Ox
97.3 F 68 18 145/83 94
10/23/23 13:40 10/23/23 13:40 10/23/23 13:40 10/23/23 13:40 10/23/23 13:40
I&O
10/22/23 10/23/23 10/24/23
06:59 06:59 06:59
Intake Total 3910 / 3910 3700 / 3700 150 / 150
Output Total 700 / 700 2400 / 2400
Balance 3210 / 3210 1300 / 1300 150 / 150
Physical Exam
Physical Exam
HEENT: Anicteric
GI: Soft and Tender
Neuro: Non Focal
--- NOTE | 2023-10-23 15:39 | W.PN.HOSP.TC ---
Today's Communication/Plan
-
Continue current management. Discharge planning today.
Assessment / Plan
Assessment / Plan
Physical exam:
General: Mild distress.
HEENT: Normocephalic, Atraumatic and Moist Mucous Membranes
Respiratory: Clear to Auscultation; Negative Wheezes, Rales or Rhonchi
Cardiac: Regular Rhythm and S1/S2
GI: Soft, Tender and Nondistended. Postop findings
Musculoskeletal: No Clubbing, No Cyanosis and No Edema
Neuro: Awake, Alert and Oriented
Psych: Calm
A/P:
Gallstone pancreatitis
-MRI abd reported.
-LFT elevated but trending down
-NPO with sips of clears maintain on IV fluid. Plan cholecystectomy today.
-Lipase elevated to 1519-->470 today
-Surgery cleared for discharge today
-Plan to discharge later today
Pre-diabetic - ruled out
-Reported previous history in the past, have not seen any PCP in many years
-A1c of 5.2
Obesity
-Excessive calorie intake, patient have lost weight in last few years
DVT proph: Lovenox
Code Status: Full Code
Anticipated Discharge: Today
Subjective/Interval History
-
Date of Service: October 23, 2023
Patient complains of pain after surgery but tolerable, no nausea or vomiting. Afebrile
Objective Data
-
Labs:
Laboratory Results
10/23/23
04:15
WBC 8.6
Hgb 14.1
Hct 39.0
Plt Count 209
Sodium 137
Potassium 3.7
Chloride 106
Carbon Dioxide 26
BUN 6 L
Creatinine 0.5 L
Glucose 72
Calcium 8.7
Total Bilirubin 2.2 H
AST 79 H
ALT 118 H
Alkaline Phosphatase 90
Vital Signs:
Vital Signs
Temp Pulse Resp BP Pulse Ox
97.3 F 68 18 145/83 94
10/23/23 13:40 10/23/23 13:40 10/23/23 13:40 10/23/23 13:40 10/23/23 13:40
I&O
10/22/23 10/23/23 10/24/23
06:59 06:59 06:59
Intake Total 3910 / 3910 3700 / 3700 150 / 150
Output Total 700 / 700 2400 / 2400
Balance 3210 / 3210 1300 / 1300 150 / 150
[2023-10-23] MEDS: TORADOL 15 MG IV (16:03)
--- NOTE | 2023-10-23 16:20 | CM ---
Per chart, plan for dc today after OR
No dc needs identified
Discharge Disposition- home, no needs
[2023-10-23] MEDS: LOVENOX 40 MG SC (17:16)
[2023-10-24] MEDS: TORADOL 15 MG IV ×2 (00:12→10:31)
[2023-10-24] MEDS: ZOSYN 50 IV ×4 (03:08→21:50)
[2023-10-24 03:10] VITALS: BP 132/67
[2023-10-24] MEDS: ULTRAM 25 MG PO (06:30)
[2023-10-24 06:40] LABS: Hematocrit 39.8 % (39.0-52.0); Hemoglobin 14.3 g/dL (13.0-18.0); Mean Corp Hgb Conc. 35.9 g/dL (33.0-37.0); Mean Corpuscular Volume 91.9 fL (80.0-94.0); Mean Platelet Volume 11.1 fL (7.4-10.4); Platelet Count 260 10^3/uL (130-400); Red Blood Cell Count 4.33 10^6/uL (4.70-6.10); Red Cell Dist. Width 12.3 % (11.5-14.5); White Blood Cell Count 13.7 10^3/uL (4.8-10.8)
[2023-10-24 07:12] LABS: ALT (SGPT) 217 U/L (0-50); AST (SGOT) 345 U/L (17-59); Alkaline Phosphatase 128 U/L (38-126); Blood Urea Nitrogen 5 mg/dl (9-20); Calcium 8.9 mg/dl (8.4-10.2); Carbon Dioxide 23 mmol/L (22-30); Chloride 106 mmol/L (98-107); Estimated Creatinine Clearance > 125 ml/min; Glucose 103 mg/dl (70-99); Potassium 3.3 mmol/L (3.5-5.1); Sodium 138 mmol/L (135-145); Total Bilirubin 3.1 mg/dl (0.2-1.3); Total Protein 6.9 g/dl (6.3-8.2); eGFR > 60.00
[2023-10-24] MEDS: NSS (PRESERVATIVE FREE) 10 ML IV (07:34)
[2023-10-24] MEDS: PROTONIX IV 40 MG IV (07:34)
[2023-10-24 07:52] VITALS: BP 141/79
--- NOTE | 2023-10-24 08:12 | W.PN.HOSP.TC ---
Today's Communication/Plan
-
Continue IVF, pain control, antibiotics. Downgrade diet
Assessment / Plan
Assessment / Plan
Physical exam:
General: Acutely ill
HEENT: Normocephalic, Atraumatic and Moist Mucous Membranes
Respiratory: Clear to Auscultation; Negative Wheezes, Rales or Rhonchi
Cardiac: Regular Rhythm and S1/S2
GI: Bowel sounds normal, Soft, Tender and Nondistended. Postop findings
Musculoskeletal: No Clubbing, No Cyanosis and No Edema
Neuro: Awake, Alert and Oriented, no gross neuro-deficits
Psych: Calm
A/P:
Gallstone pancreatitis s/p Heather and now recurrent abdominal pain with elevated pancreatic enzymes with recurrent pancreatitis:
-Downgrade diet to clear liquid today
-Keep IV fluids LR at 150 cc/h
-Continue IV antibiotics, Zosyn
-Continue pain control
-Lipase 1519-->470-->4000
-Discussed with surgery
-No discharge today on 10/24
Prior to today:
-MRI abd reported.
-LFT elevated but trending down
-Status post cholecystectomy on 10/23.
Pre-diabetic - ruled out
-Reported previous history in the past, have not seen any PCP in many years
-A1c of 5.2
Obesity
-Excessive calorie intake, patient have lost weight in last few years
DVT proph: Lovenox
Code Status: Full Code
Total time spent on today's encounter was 52 minutes which included time spent in counseling the patient/family regarding diagnosis and treatment plan as listed above, goals of care, and symptom management. Case was discussed with nursing staff,
specialists, and care coordinators/case management. All labs and imaging personally reviewed by me. Remainder the time spent in detailed review of previous records, lab data, imaging, and other medical provider documentation.
Anticipated Discharge: 24 - 48 hours
Subjective/Interval History
-
Date of Service: October 24, 2023
Patient still having abdominal pain today especially after eating. He feels his abdominal pain is similar to before surgery. No nausea or vomiting. Afebrile
Objective Data
-
Labs:
Laboratory Results
10/24/23
05:44
WBC 13.7 H
Hgb 14.3
Hct 39.8
Plt Count 260 D
Sodium 138
Potassium 3.3 L
Chloride 106
Carbon Dioxide 23
BUN 5 L
Creatinine 0.6 L
Glucose 103 H
Calcium 8.9
Total Bilirubin 3.1 H
AST 345 H
ALT 217 H
Alkaline Phosphatase 128 H
Vital Signs:
Vital Signs
Temp Pulse Resp BP Pulse Ox
98 F 60 20 141/79 100
10/24/23 07:52 10/24/23 07:52 10/24/23 07:52 10/24/23 07:52 10/24/23 07:52
I&O
10/23/23 10/24/23 10/25/23
06:59 06:59 06:59
Intake Total 3700 / 3700 4200 / 4200
Output Total 2400 / 2400 3655 / 3655
Balance 1300 / 1300 545 / 545
Review of Systems
-
All other systems: Reviewed and negative
--- NOTE | 2023-10-24 09:43 | W.PN.GI.CBS2 ---
Today's Communication / Plan
-
If Pain improved today and tolerates diet then okay to DC home but would recommend repeating LFTs 1 week post discharge since LFTs are higher today, but if pain worsens then may need repeat imaging
Assessment / Plan
-
Pt is a 43yo with hx prior hx several bouts of PNA, exp lap for liver laceration as child with onset of RUQ pain. In reviewing with patient has had intermittent pain for last 2 years. He recalls 90 lb wt loss prior to onset a few years ago than
weight leveled off. Pain would appear about every other month but resolve. This episode pain continued and presented for evaluation. On admission noted with bilirubin 3.7, AST 313, ALT 188, alk phos 106, and lipase 125. US notable for multiple
small gallstones in gallbladder but no ductal dilation, fatty liver and renal cysts. MRI pending to be completed.
-RUQ pain with intermittent bouts last 2 years
-increased LFT's
-cholelithiasis
-hx liver laceration as child with exp lap
-prior PNA
-obesity
-fatty liver
-occasional NSAID use
pain contol
OP eval for fatty liver, will need colonoscopy for screening after February at age 44
# biliary colic - gallstone pancreatitis - POD 1 for amanda with dense adhesions and spillage of bile and multiple stones. Intraoperative cholangiogram showed no filling defects. 1 stone was milked back from the cystic duct.
LFTs higher today ? maybe post op, IOC was neg for CBD stones, monitor LFTS, lipase pending
continue antibiotics (duration per surgery)
If tolerates diet today then OK to DC home but repeat LFTS in 1 week after DC
Also told him to use MiraLAX for constipation at home
Subjective
Subjective
Date of Service: October 24, 2023
Pain is improved today morning, he did require pain medicine last night. No nausea or vomiting, afebrile but has mild leukocytosis today and also LFTs more elevated today.
Objective
Data Reviewed
Laboratory Data:
Laboratory Results
10/24/23 05:44
10/24/23 05:44
Laboratory Results
Total Bilirubin 3.1 mg/dl (0.2-1.3) H 10/24/23 05:44
AST 345 U/L (17-59) H 10/24/23 05:44
ALT 217 U/L (0-50) H 10/24/23 05:44
Alkaline Phosphatase 128 U/L (38-126) H 10/24/23 05:44
Lipase 470 U/L (23-300) H 10/23/23 04:15
Vital Signs and I&O:
Vital Signs
Temp Pulse Resp BP Pulse Ox
98 F 60 20 141/79 100
10/24/23 07:52 10/24/23 07:52 10/24/23 07:52 10/24/23 07:52 10/24/23 07:52
I&O
10/23/23 10/24/23 10/25/23
06:59 06:59 06:59
Intake Total 3700 / 3700 4200 / 4200
Output Total 2400 / 2400 3655 / 3655
Balance 1300 / 1300 545 / 545
Physical Exam
Physical Exam
Cardiology: Normal Sinus Rhythm
Pulmonary: Clear
GI: Soft, Non Distended, Tender (mild epigastric and RUQ tenderness, ) and Normal Bowel Sounds
[2023-10-24] MEDS: KCL 40 MEQ PO (10:47)
[2023-10-24 10:54] LABS: Lipase > 4000 U/L (23-300)
--- NOTE | 2023-10-24 11:01 | CM ---
Spoke with patient bedside.
Plan back to residential sober house when medically cleared.
Patient has transportation available.
Patient denies home care needs.
Plan: home no needs.
--- NOTE | 2023-10-24 11:03 | CM ---
Spoke with patient bedside.
S/p Jose GUTIÉRREZ.
Patient denies home care needs.
Plan: home no needs anticipated.
[2023-10-24 11:19] VITALS: BP 154/79
[2023-10-24] MEDS: LR 1000 IV ×2 (11:24→17:49)
[2023-10-24] MEDS: LR IV (11:24)
--- NOTE | 2023-10-24 12:06 | W.PN.GS2 ---
Today's Communication / Plan
-
Ongoing pancreatitis.
Pain control, IV fluids, clears.
Continue IV antibiotics while inpatient
Assessment / Plan
-
This is a 43-year-old male with history of obesity who presents with 2-day history of worsening postprandial, right upper quadrant pain in the setting of the years of biliary colic found to have a distended gallbladder as well as pancreatitis on
MRI. He is postoperative day 1 from a laparoscopic cholecystectomy and cholangiogram with fairly extensive lysis of adhesions. Now with epigastric pain and elevated lipase concerning for ongoing pancreatitis
Okay for clears, can advance diet as tolerated
Will continue antibiotics while inpatient.
Pain control
Continue to trend LFTs and lipase. His bilirubin is elevated though with a negative IOC I have a low suspicion for common duct stone.
General surgery will continue to follow
Time Spent
Total Time Spent with Patient (in minutes): 20
Subjective Data
-
Date of Service: October 24, 2023
Interval Events:
No acute events overnight but his pain is worse more similar to his pain on presentation. Denies Nausea/Vomiting, but pain worse with eating.
Objective Data
-
Intake and Output
10/23/23 10/24/23 10/25/23
06:59 06:59 06:59
Intake Total 3700 / 3700 4200 / 4200
Output Total 2400 / 2400 3654 / 3654
Balance 1300 / 1300 545 / 545
Intake:
Oral fluids 1200 / 1200
IV fluids (Total) 3550 / 3550 2850 / 2850
LR 50 / 50
Normosol 100 / 100
IV piggybacks 150 / 150 150 / 150
Output:
Urine, Voided 2400 / 2400 3654 / 3654
Other:
Number of approximated MODERATE 3
amounts of urine
Vital Signs
Temp Pulse Resp BP Pulse Ox
98.4 F 53 19 154/79 99
10/24/23 11:19 10/24/23 11:19 10/24/23 11:19 10/24/23 11:19 10/24/23 11:19
Lab Results
10/24/23 05:44
10/24/23 05:44
Calcium 8.9 mg/dl (8.4-10.2) 10/24/23 05:44
Total Bilirubin 3.1 mg/dl (0.2-1.3) H 10/24/23 05:44
Direct Bilirubin 1.3 mg/dl (0.0-0.4) H 10/22/23 04:49
AST 345 U/L (17-59) H 10/24/23 05:44
ALT 217 U/L (0-50) H 10/24/23 05:44
Alkaline Phosphatase 128 U/L (38-126) H 10/24/23 05:44
Total Protein 6.9 g/dl (6.3-8.2) 10/24/23 05:44
Albumin 4.0 g/dl (3.5-5.0) 10/24/23 05:44
Physical Exam
-
GENERAL/NEURO: Awake, Alert, no distress
CHEST: Unlabored breathing on RA
ABDOMEN: Soft, tender to palpation in the epigastrium, nondistended.
[2023-10-24 15:38] VITALS: BP 151/81
[2023-10-24] MEDS: LOVENOX 40 MG SC (17:49)
[2023-10-24 22:56] VITALS: BP 136/84
[2023-10-25] MEDS: LR 1000 IV ×3 (00:46→13:45)
[2023-10-25] MEDS: ZOSYN 50 IV ×2 (03:30→10:00)
[2023-10-25 05:04] LABS: % Basophils 0.4 % (0-2); % Eosinophils 1.4 % (0-6); % Immature Granulocytes 0.3 % (0-0.5); % Neutrophils 59.9 % (42.2-75.2); Absolute Eosinophils 0.1 10^3/uL (0-0.7); Absolute Lymphocytes 2.7 10^3/uL (1.2-3.4); Absolute Monocytes 0.8 10^3/uL (0.1-0.6); Absolute Neutrophils 5.6 10^3/uL (1.4-6.5); Hematocrit 35.2 % (39.0-52.0); Hemoglobin 12.4 g/dL (13.0-18.0); Mean Corp Hgb Conc. 35.2 g/dL (33.0-37.0); Mean Corpuscular Hgb 32.4 pg (27.0-31.0); Mean Corpuscular Volume 91.9 fL (80.0-94.0); Mean Platelet Volume 10.9 fL (7.4-10.4); Nucleated Red Blood Cells % 0 % (-); Platelet Count 198 10^3/uL (130-400); Red Blood Cell Count 3.83 10^6/uL (4.70-6.10); Red Cell Dist. Width 12.5 % (11.5-14.5); White Blood Cell Count 9.4 10^3/uL (4.8-10.8)
[2023-10-25 05:08] LABS: INR 1.06; PT 13.8 Sec (11.4-14.6)
[2023-10-25 05:45] LABS: ALT (SGPT) 174 U/L (0-50); AST (SGOT) 118 U/L (17-59); Albumin 3.4 g/dl (3.5-5.0); Alkaline Phosphatase 94 U/L (38-126); Blood Urea Nitrogen 6 mg/dl (9-20); Calcium 8.5 mg/dl (8.4-10.2); Carbon Dioxide 28 mmol/L (22-30); Chloride 107 mmol/L (98-107); Estimated Creatinine Clearance > 125 ml/min; Glucose 78 mg/dl (70-99); Lipase 454 U/L (23-300); Potassium 3.5 mmol/L (3.5-5.1); Sodium 137 mmol/L (135-145); Total Bilirubin 1.4 mg/dl (0.2-1.3); Total Protein 5.7 g/dl (6.3-8.2); eGFR > 60.00
[2023-10-25] MEDS: PROTONIX IV 40 MG IV (07:32)
[2023-10-25] MEDS: NSS (PRESERVATIVE FREE) 10 ML IV (07:32)
--- NOTE | 2023-10-25 08:01 | W.PN.HOSP.TC ---
Today's Communication/Plan
-
Continue current management. Discharge planning in progress
Assessment / Plan
Assessment / Plan
Physical exam:
General: No distress
HEENT: Normocephalic, Atraumatic and Moist Mucous Membranes
Respiratory: Clear to Auscultation; Negative Wheezes, Rales or Rhonchi
Cardiac: Regular Rhythm and S1/S2
GI: Bowel sounds normal, Soft, Non tender and Nondistended. Postop findings
Musculoskeletal: No Clubbing, No Cyanosis and No Edema
Neuro: Awake, Alert and Oriented, no gross neuro-deficits
Psych: Calm
A/P:
Gallstone pancreatitis s/p Heather and now recurrent abdominal pain with elevated pancreatic enzymes with recurrent pancreatitis:
-Diet back to low-fat diet
-Stop IV fluids
-Can stop antibiotics upon discharge
-GI follow-up appreciated and cleared for discharge
-Lipase 1519-->470-->4000-->454
Prior to today:
-MRI abd reported.
-LFT elevated but trending down
-Status post cholecystectomy on 10/23.
Pre-diabetic - ruled out
-Reported previous history in the past, have not seen any PCP in many years
-A1c of 5.2
Obesity
-Excessive calorie intake, patient have lost weight in last few years
DVT proph: Lovenox
Code Status: Full Code
Anticipated Discharge: Today
Subjective/Interval History
-
Date of Service: October 25, 2023
Patient abdominal pain resolved this morning. Able to tolerate his diet.
Objective Data
-
Labs:
Laboratory Results
10/25/23
04:24
WBC 9.4
Hgb 12.4 L
Hct 35.2 L
Plt Count 198 D
PT 13.8
INR 1.06
Sodium 137
Potassium 3.5
Chloride 107
Carbon Dioxide 28
BUN 6 L
Creatinine 0.6 L
Glucose 78
Calcium 8.5
Total Bilirubin 1.4 H D
AST 118 H
ALT 174 H
Alkaline Phosphatase 94
Vital Signs:
Vital Signs
Temp Pulse Resp BP Pulse Ox
98.5 F 49 16 136/84 100
10/24/23 22:56 10/24/23 22:56 10/24/23 22:56 10/24/23 22:56 10/24/23 22:56
I&O
10/24/23 10/25/23 10/26/23
06:59 06:59 06:59
Intake Total 4200 / 4200 2540 / 2540 2230 / 2230
Output Total 3655 / 3655 600 / 600 1650 / 1650
Balance 545 / 545 1940 / 1940 580 / 580
[2023-10-25 08:10] VITALS: BP 142/78
--- NOTE | 2023-10-25 08:51 | W.PN.GS2 ---
Today's Communication / Plan
-
LFD
DC when tolerating
Assessment / Plan
-
This is a 43-year-old male with history of obesity who presents with 2-day history of worsening postprandial, right upper quadrant pain in the setting of the years of biliary colic found to have a distended gallbladder as well as pancreatitis on
MRI. He is postoperative day 2 from a laparoscopic cholecystectomy and cholangiogram with fairly extensive lysis of adhesions. Now with epigastric pain and elevated lipase concerning for ongoing pancreatitis
Adv to LFD
Will continue antibiotics while inpatient.
Pain control
LFTs improved
If navid diet, OK for DC from surg standpoint
Subjective Data
-
Date of Service: October 25, 2023
AFVSS, ambulating, pain improved, navid CLD without postprandial pain
Objective Data
-
Intake and Output
10/24/23 10/25/23 10/26/23
06:59 06:59 06:59
Intake Total 4200 / 4200 2540 / 2540 2230 / 2230
Output Total 3655 / 3655 600 / 600 1650 / 1650
Balance 545 / 545 1940 / 1940 580 / 580
Intake:
Oral fluids 1200 / 1200 1440 / 1440 480 / 480
IV fluids (Total) 2850 / 2850 1000 / 1000 1650 / 1650
LR 50 / 50
Normosol 100 / 100
IV piggybacks 150 / 150 100 / 100 100 / 100
Output:
Urine, Voided 3655 / 3655 600 / 600 1650 / 1650
Other:
Number of approximated LARGE 3
amounts of urine
Vital Signs
Temp Pulse Resp BP Pulse Ox
98.4 F 50 18 142/78 98
10/25/23 08:10 10/25/23 08:10 10/25/23 08:10 10/25/23 08:10 10/25/23 08:10
Lab Results
10/25/23 04:24
10/25/23 04:24
Calcium 8.5 mg/dl (8.4-10.2) 10/25/23 04:24
Total Bilirubin 1.4 mg/dl (0.2-1.3) H D 10/25/23 04:24
Direct Bilirubin 1.3 mg/dl (0.0-0.4) H 10/22/23 04:49
AST 118 U/L (17-59) H 10/25/23 04:24
ALT 174 U/L (0-50) H 10/25/23 04:24
Alkaline Phosphatase 94 U/L (38-126) 10/25/23 04:24
Total Protein 5.7 g/dl (6.3-8.2) L 10/25/23 04:24
Albumin 3.4 g/dl (3.5-5.0) L 10/25/23 04:24
Physical Exam
-
Gen: NAD
Abd: soft, obese, approp ttp, incisions cdi
--- NOTE | 2023-10-25 09:16 | W.PN.GI.CBS2 ---
Today's Communication / Plan
-
adv diet
possible DC today if tolerates diet and Ok with surgery
Assessment / Plan
-
Pt is a 43yo with hx prior hx several bouts of PNA, exp lap for liver laceration as child with onset of RUQ pain. In reviewing with patient has had intermittent pain for last 2 years. He recalls 90 lb wt loss prior to onset a few years ago than
weight leveled off. Pain would appear about every other month but resolve. This episode pain continued and presented for evaluation. On admission noted with bilirubin 3.7, AST 313, ALT 188, alk phos 106, and lipase 125. US notable for multiple
small gallstones in gallbladder but no ductal dilation, fatty liver and renal cysts. MRI pending to be completed.
-RUQ pain with intermittent bouts last 2 years
-increased LFT's
-cholelithiasis
-hx liver laceration as child with exp lap
-prior PNA
-obesity
-fatty liver
-occasional NSAID use
pain contol
OP eval for fatty liver, will need colonoscopy for screening after February at age 44
# biliary colic - gallstone pancreatitis - POD 2 for amanda with dense adhesions and spillage of bile and multiple stones. Intraoperative cholangiogram showed no filling defects. 1 stone was milked back from the cystic duct.
LFTs higher 10/24 ? maybe post op, IOC was neg for CBD stones
Lipase was also elevated yesterday much improved today
continue antibiotics (duration per surgery)
Will adv diet to low fat diet, If tolerates diet today then OK to DC home with repeat LFTS in 1 week after DC
Also told him to use MiraLAX for constipation at home
Subjective
Subjective
Date of Service: October 25, 2023
Abdominal pain is improved and his lipase and LFTs have markedly improved today also. No nausea or vomiting he has been tolerating clear liquids
Objective
Data Reviewed
Laboratory Data:
Laboratory Results
10/25/23 04:24
10/25/23 04:24
Laboratory Results
PT 13.8 Sec (11.4-14.6) 10/25/23 04:24
INR 1.06 10/25/23 04:24
Total Bilirubin 1.4 mg/dl (0.2-1.3) H D 10/25/23 04:24
AST 118 U/L (17-59) H 10/25/23 04:24
ALT 174 U/L (0-50) H 10/25/23 04:24
Alkaline Phosphatase 94 U/L (38-126) 10/25/23 04:24
Lipase 454 U/L (23-300) H 10/25/23 04:24
Vital Signs and I&O:
Vital Signs
Temp Pulse Resp BP Pulse Ox
98.4 F 50 18 142/78 98
10/25/23 08:10 10/25/23 08:10 10/25/23 08:10 10/25/23 08:10 10/25/23 08:10
I&O
10/24/23 10/25/23 10/26/23
06:59 06:59 06:59
Intake Total 4200 / 4200 2540 / 2540 2230 / 2230
Output Total 3655 / 3655 600 / 600 1650 / 1650
Balance 545 / 545 1940 / 1940 580 / 580
Physical Exam
Physical Exam
Cardiology: Normal Sinus Rhythm
Pulmonary: Clear
GI: Soft, Non Distended, Tender (Minimal epigastric incision tenderness) and Normal Bowel Sounds
--- NOTE | 2023-10-25 11:37 | W.DCSUMMARY ---
Discharge Summary
Discharge Data
Date of Admission: 10/20/23
Date of Discharge: 10/25/23
-
Pending Results: No
Hospital Course
Patient 43 years old male who came into the hospital with abdominal pain and he was found to have abdominal gallstones and MRI shows evidence of pancreatitis without choledocholithiasis with elevated LFTs and pancreatic enzymes he was kept n.p.o.
and IV fluids and pain control. GI and surgery was consulted. He was also given antibiotics. Patient improved with conservative treatment and he was taken to the OR on 10/23 and he had a cholecystectomy performed. Cholangiogram unremarkable.
Postop he developed some abdominal pain and increased lipase so diet had to be downgraded. Subsequently patient improved and he has been able to tolerate his diet and lipase and LFTs are trending down appropriately. Otherwise, patient is
hemodynamically stable and he feels he wants to go home. He will be discharged in stable condition today.
Discharge duration: 35 minutes
Discharge Plan
-
Patient Disposition: Home (Routine Discharge)
Discharge Diagnosis/Procedures: Acute cholecystitis. Laparoscopic cholecystectomy and cholangiogram.
Condition: Good
Diet: Regular
Activity: No strenuous activity
Bathing Restrictions: OK to Shower
Activity Restrictions/Additional Instructions:
Instructions following Laparoscopic cholecystectomy
Please call [phone] if you have any questions or concerns after your surgery.
Wound Care:
Your incisions are covered with skin glue which will come off on it�s own in 5-10 days.
It is ok to shower the day after your surgery. Do not scrub the incisions, let soap and water wash over them and pat dry.
� Bruising around your incisions is normal.
� Using ice packs will help minimize this swelling.
� No swimming or soaking incisions for 1 week.
� Your stitches will dissolve and do not need to be removed.
Urinary retention:
If you are unable to urinate 6-8 hours after your surgery, please call [phone] to discuss further management.
Activity:
No heavy lifting more than 15 pounds for the next 3 weeks, then you may gradually lift heavier objects as tolerated by discomfort. Otherwise activity as tolerated by your comfort level.
Pain Management:
Use Tylenol, ibuprofen and ice packs to treat your pain.
� You may take 650 milligrams of Tylenol (Max 3 grams per day) every 6 hours, and 600 mg of ibuprofen also every 6 hours. (you can alternate them every 3 hours)
� You may use an ice pack to your incision as needed.
� If you still have pain not controlled by these measures, take your prescription pain medication as prescribed.
Medications:
You may resume your home medications.
Bowel Medications:
Prescription pain medication can make you constipated. If you take this medication, also take colace 100 mg twice daily (this is over the counter). If this is not sufficient, you may take Miralax (polyethylene glycol) to help move your bowels.
Diet:
After your procedure, there are no dietary restrictions. You may notice loose stools for up to 4 weeks after surgery with fatty meals, if this is the case you may have to adjust your diet as needed.
Driving restrictions:
No driving if you are taking prescription pain medication or if you think your normal reaction time and attentiveness has been slowed by your surgery.
Things to Look out for:
Worsening Abdominal pain, redness or drainage from incision
Call Doctor for:
Please call if you notice worsening redness or drainage from incision(s) lasting longer than 5 days after your surgery, any foul-smelling drainage from the incision, pain not controlled by pain medications, persistent nausea and vomiting, or for any
fevers greater than 101.3 F. The number for questions/concerns is [phone]
Follow-up:
Follow-up appointment will be scheduled with your surgeon in 3-4 weeks. Please call prior to your appointment if you have any questions or concerns. [phone]
Referrals:
Federico Breaux MD [Family Provider] -
Armani Montez MD [Active] - in two to four weeks
Prescriptions:
New
acetaminophen [acetaminophen] 325 mg tablet
650 mg PO Q6HPRN PRN (Reason: mild pain) Qty: 14 0RF
ibuprofen 600 mg tablet
600 mg PO Q6H PRN (Reason: pain) Qty: 14 0RF
tramadol 50 mg tablet
50 mg PO BID PRN (Reason: severe pain) Qty: 4 0RF
polyethylene glycol 3350 [Miralax] 17 gram/dose powder
4 g PO DAILY Qty: 119 0RF
Discharge Orders:
Discharge Patient (As Directed); Ordered 10/25/23
Ordered By: Francis Floyd
Discharge Date and Time
Discharge Date/Time: 10/25/23 16:05
== END 2023-10-25 16:05 | disposition home or self-care (01) | DRG 418 ==
LOC: 2 SOUTH 19:45
PROVIDERS: Hospitalist; Physician Assistant; Physician Assistant Medical; Surgery; ADMITTING PHYSICIAN Hospitalist; ATTENDING PHYSICIAN Hospitalist; CONSULT PHYSICIAN Internal Medicine; EMERGENCY PHYSICIAN Emergency Medicine; FAMILY PHYSICIAN Family Medicine; OTHER PHYSICIAN Surgery
PROC: 0FN44ZZ Release Gallbladder, Percutaneous Endoscopic Approach (ICD-10-PCS; 2023-10-23)
PROC: 0FT44ZZ Resection of Gallbladder, Percutaneous Endoscopic Approach (ICD-10-PCS; 2023-10-23)
PROC: 0DNU4ZZ Release Omentum, Percutaneous Endoscopic Approach (ICD-10-PCS; 2023-10-23)
PROC: BF141ZZ Fluoroscopy of Gallbladder, Bile Ducts and Pancreatic Ducts using Low Osmolar Contrast (ICD-10-PCS; 2023-10-23)
DX: K85.10 Biliary acute pancreatitis without necrosis or infection (principal); K80.66 Calculus of gallbladder and bile duct with acute and chronic cholecystitis without obstruction; E66.9 Obesity, unspecified; K66.0 Peritoneal adhesions (postprocedural) (postinfection); K82.8 Other specified diseases of gallbladder; Z68.38 Body mass index [BMI] 38.0-38.9, adult
CPT/HCPCS: 88304; 74183; 74300; 76000; 76700; 80053; 80061; 81003; 82248; 83036; 83690; 85025; 85027; 85610; 96361; 96374; 99284; A9575